=== PATIENT | male | born 1980 | race Two or more races ===

== ENCOUNTER 2024-03-14 14:34 | Inpatient (IN) | payer OTHER, SELFPAY ==
[~2024-03-14] VITALS: Ht 167.6 cm; Wt 69.7 kg
[2024-03-14 16:03] LABS: BASO % 0.4 % (0.0-1.0); EOS # 0.1 10^3/uL (0.0-0.5); EOS % 1.2 % (0.0-3.0); HEMATOCRIT 38.4 % (42.0-52.0); HEMOGLOBIN 12.8 g/dl (13.5-17.5); LYMPH # 1.7 10^3/uL (1.5-5.0); LYMPH % 25.3 % (24.0-44.0); MEAN CORPUSCULAR HGB CONC 33.3 g/dl (32.0-36.5); MONO # 0.5 10^3/uL (0.0-0.8); MONO % 7.3 % (2.0-8.0); NEUTROPHILS # 4.4 10^3/uL (1.5-8.5); NEUTROPHILS % 65.7 % (36.0-66.0); PLATELET COUNT, AUTOMATED 231 10^3/uL (150-450); RED BLOOD COUNT 4.74 10^6/uL (4.30-6.10); WHITE BLOOD COUNT 6.7 10^3/uL (4.0-10.0)
[2024-03-14 16:23] LABS: ERYTHROCYTE SEDIMENTATION RATE 43 mm/hr (0-15)
[2024-03-14 16:31] LABS: URIC ACID 3.7 MG/DL (3.7-9.2)
[2024-03-14] MEDS: HumuLIN R (REGULAR) INSULIN (NovoLIN R) **100U/ML** PER UNIT IV ONE (16:56)
[2024-03-14] MEDS: NS 1,000 ML IV ONE (16:56)
[2024-03-14 17:28] LABS: ACETONE/KETONE 0.18 MMOL/L (0.02-0.27)
[2024-03-14 17:57] LABS: HEMOGLOBIN A1c 13.2 % (4.0-6.0)
[2024-03-14 18:03] LABS: OSMOLALITY SERUM 310 MOSM/KG (275-295)
[2024-03-14 18:19] LABS: APPEARANCE, URINE CLEAR (CLEAR); BACTERIA, URINE AUTO NEGATIVE (NEGATIVE); BILIRUBIN, URINE AUTO NEGATIVE (NEGATIVE); BLOOD, URINE BLOOD NEGATIVE (NEGATIVE); COLOR, URINE STRAW (YELLOW); GLUCOSE, URINE (UA) AUTO 3+ mg/dL (NEGATIVE); KETONE, URINE AUTO TRACE mg/dL (NEGATIVE); LEUKOCYTE ESTERASE, URINE AUTO NEGATIVE (NEGATIVE); NITRITE, URINE AUTO NEGATIVE (NEGATIVE); PROTEIN, URINE AUTO NEGATIVE (NEGATIVE); RBC, URINE AUTO 0 /HPF (0-3); SQUAMOUS EPITHELIAL CELL UR AU 0 /HPF (0-6); UROBILINOGEN, URINE AUTO 0.2 mg/dL (0.0-2.0); WBC, URINE AUTO 0 /HPF (0-3)
[2024-03-14] MEDS ORDERED: AMPICILLIN SOD/SULBACTAM SOD 3 GM in DEXTROSE 5% (D5W) ADV/MINI-BAG 50 ML IV ONE (18:55)
[2024-03-14] MEDS: AMPICILLIN SOD/SULBACTAM SOD 3 GM in SODIUM CHLORIDE 0.9% 100ML ADD 100 ML IV ONE (19:29)
[2024-03-14] MEDS ORDERED: MOM 30ML SUSPENSION UDC PO PRN (20:40)
[2024-03-14] MEDS ORDERED: DEXTROSE 50% 50ML SYRINGE IV PRN (20:40)
[2024-03-14] MEDS ORDERED: GLUCAGON INJ 1MG VIAL SC PRN (20:40)
[2024-03-14] MEDS ORDERED: ACETAMINOPHEN 325 MG TAB PO PRN (20:40)
[2024-03-14] MEDS ORDERED: GLUCOSE 4 GM CHEW PO PRN (20:40)
[2024-03-14] MEDS ORDERED: HOME MED LIST COMPLETE! XX SCH (20:45)
[2024-03-14 21:21] LABS: ALBUMIN 3.6 G/DL (3.2-5.2); ALKALINE PHOSPHATASE 93 U/L (40-129); ALT/SGPT 15 U/L (7.0-40); AST/SGOT 9 U/L (<34); BILIRUBIN,TOTAL 0.8 MG/DL (0.3-1.2); BLOOD UREA NITROGEN 12 MG/DL (9-23); CALCIUM LEVEL 9.7 MG/DL (8.5-10.1); CARBON DIOXIDE LEVEL 35 MMOL/L (20-31); CHLORIDE LEVEL 97 MMOL/L (98-107); CREATININE FOR GFR 0.69 MG/DL (0.70-1.30); GLOMERULAR FILTRATION RATE > 60.0 (>60); GLUCOSE, FASTING 441 MG/DL (60-100); POTASSIUM SERUM 4.5 MMOL/L (3.5-5.1); SODIUM LEVEL 137 MMOL/L (136-145); TOTAL PROTEIN 7.7 G/DL (5.7-8.2)
[2024-03-14 21:37] LABS: VENOUS BASE EXCESS 2.6 (-2.0-2.0); VENOUS HCO3 29.6 MMOL/L (23.0-27.0); VENOUS O2 SATURATION 72.5 % (60.0-80.0); VENOUS PARTIAL PRESSURE CO2 56.6 mmHg (38.0-50.0); VENOUS PARTIAL PRESSURE O2 38.5 mmHg (30.0-50.0); VENOUS PH 7.337 UNITS (7.330-7.430); VENOUS STANDARD HCO3 26.3 MMOL/L; VENOUS TOTAL CO2 31.4 MMOL/L (24.0-28.0)
[2024-03-14 22:30] VITALS: BP 141/94; TEMP 97.9; O2SAT 99
[2024-03-14] MEDS: INSULIN LISPRO (NovoLOG) PER UNIT SC SCH (22:57)
[2024-03-15] MEDS: AMPICILLIN SOD/SULBACTAM SOD 3 GM in SODIUM CHLORIDE 0.9% 100ML ADD 100 ML IV SCH (01:29)
[2024-03-15 04:00] VITALS: BP 117/76; TEMP 97.9; O2SAT 96
[2024-03-15 06:22] LABS: HEMATOCRIT 35.9 % (42.0-52.0); HEMOGLOBIN 11.8 g/dl (13.5-17.5); MEAN CORPUSCULAR HEMOGLOBIN 26.8 pg (27.0-33.0); MEAN CORPUSCULAR HGB CONC 32.9 g/dl (32.0-36.5); MEAN CORPUSCULAR VOLUME 81.4 fl (80.0-96.0); PLATELET COUNT, AUTOMATED 211 10^3/uL (150-450); RED BLOOD COUNT 4.41 10^6/uL (4.30-6.10); WHITE BLOOD COUNT 5.1 10^3/uL (4.0-10.0)
[2024-03-15 06:47] LABS: BLOOD UREA NITROGEN 12 MG/DL (9-23); CALCIUM LEVEL 9.2 MG/DL (8.5-10.1); CARBON DIOXIDE LEVEL 33 MMOL/L (20-31); CHLORIDE LEVEL 101 MMOL/L (98-107); CREATININE FOR GFR 0.66 MG/DL (0.70-1.30); GLOMERULAR FILTRATION RATE > 60.0 (>60); GLUCOSE, FASTING 126 MG/DL (60-100); POTASSIUM SERUM 3.9 MMOL/L (3.5-5.1); SODIUM LEVEL 140 MMOL/L (136-145)
[2024-03-15] MEDS: ENOXAPARIN 40MG/0.4ML SYRINGE (J1650 PER 10MG) SC SCH (09:00)
[2024-03-15] MEDS: INSULIN LISPRO (NovoLOG) PER UNIT SC SCH (09:03)
[2024-03-15] MEDS ORDERED: MIDAZOLAM INJ 2MG/2ML VIAL As Ordered ONE (18:49)
[2024-03-15] MEDS ORDERED: fentaNYL 100 MCG/2 ML INJECTION As Ordered ONE (18:50)
[2024-03-15] MEDS ORDERED: propofoL 200 MG/20 ML VIAL As Ordered ONE (18:51)
[2024-03-15] MEDS ORDERED: ONDANSETRON 4MG 2ML VIAL As Ordered ONE (18:52)
[2024-03-15] MEDS: LIDOCAINE 2% MDV 20ML VIAL As Ordered ONE (18:57)
[2024-03-15] MEDS ORDERED: LIDOCAINE 2% 100MG/5ML SDV (FOR ANES.) As Ordered ONE (19:01)
[2024-03-15] MEDS: LIDOCAINE 1% MDV 20ML VIAL As Ordered ONE (19:08)
[2024-03-15] MEDS: UNASYN 3GM VIAL As Ordered ONE (19:20)
[2024-03-15] MEDS: GENTAMICIN SULF 80MG/2ML VIAL As Ordered ONE (19:45)
[2024-03-15] MEDS ORDERED: KETOROLAC 60MG 2ML VIAL As Ordered ONE (19:56)
[2024-03-15] MEDS ORDERED: ONDANSETRON 4MG 2ML VIAL IV PRN (20:10)
[2024-03-15] MEDS ORDERED: oxyCODONE 5MG TAB PO PRN (20:10)
[2024-03-15] MEDS ORDERED: HYDROMORPHONE HCL 0.5 MG/ 0.5 ML SYRINGE IV PRN (20:10)
[2024-03-15] MEDS ORDERED: fentaNYL 100 MCG/2 ML INJECTION IV PRN (20:10)
[2024-03-15 20:45] VITALS: BP 119/84; TEMP 97.5; O2SAT 98
[2024-03-15 21:16] VITALS: BP 120/85; TEMP 97.7; O2SAT 98
[2024-03-15 21:57] VITALS: BP 122/86; TEMP 97.7; O2SAT 99
[2024-03-15 23:04] VITALS: BP 120/84; TEMP 97.7; O2SAT 99
[2024-03-16] VITALS (8 sets, daily range): BP systolic 107–137; BP diastolic 66–90; TEMP 97.7–98.8; O2SAT 98–100
[2024-03-16 06:15] LABS: HEMATOCRIT 35.4 % (42.0-52.0); HEMOGLOBIN 11.7 g/dl (13.5-17.5); MEAN CORPUSCULAR HEMOGLOBIN 27.2 pg (27.0-33.0); MEAN CORPUSCULAR HGB CONC 33.1 g/dl (32.0-36.5); MEAN CORPUSCULAR VOLUME 82.3 fl (80.0-96.0); PLATELET COUNT, AUTOMATED 221 10^3/uL (150-450); WHITE BLOOD COUNT 4.5 10^3/uL (4.0-10.0)
[2024-03-16 06:39] LABS: BLOOD UREA NITROGEN 17 MG/DL (9-23); CALCIUM LEVEL 9.2 MG/DL (8.5-10.1); CARBON DIOXIDE LEVEL 34 MMOL/L (20-31); CHLORIDE LEVEL 99 MMOL/L (98-107); CREATININE FOR GFR 0.73 MG/DL (0.70-1.30); GLOMERULAR FILTRATION RATE > 60.0 (>60); GLUCOSE, FASTING 276 MG/DL (60-100); POTASSIUM SERUM 4.1 MMOL/L (3.5-5.1); SODIUM LEVEL 137 MMOL/L (136-145)
[2024-03-17 04:00] VITALS: BP 106/70; TEMP 98.1; O2SAT 98
[2024-03-17 04:45] LABS: HEMATOCRIT 35.7 % (42.0-52.0); HEMOGLOBIN 11.7 g/dl (13.5-17.5); MEAN CORPUSCULAR HEMOGLOBIN 26.9 pg (27.0-33.0); MEAN CORPUSCULAR HGB CONC 32.8 g/dl (32.0-36.5); MEAN CORPUSCULAR VOLUME 82.1 fl (80.0-96.0); PLATELET COUNT, AUTOMATED 249 10^3/uL (150-450); RED BLOOD COUNT 4.35 10^6/uL (4.30-6.10)
[2024-03-17 05:13] LABS: BLOOD UREA NITROGEN 15 MG/DL (9-23); CALCIUM LEVEL 9.4 MG/DL (8.5-10.1); CARBON DIOXIDE LEVEL 33 MMOL/L (20-31); CHLORIDE LEVEL 98 MMOL/L (98-107); CREATININE FOR GFR 0.68 MG/DL (0.70-1.30); GLOMERULAR FILTRATION RATE > 60.0 (>60); GLUCOSE, FASTING 322 MG/DL (60-100); POTASSIUM SERUM 4.8 MMOL/L (3.5-5.1); SODIUM LEVEL 135 MMOL/L (136-145)
[2024-03-17 08:00] VITALS: BP 97/66; TEMP 98.1; O2SAT 99
[2024-03-17] MEDS: LEVEMIR (INSULIN DETEMIR) 1 UNITS/0.01ML SC SCH (09:16)
[2024-03-17 12:00] VITALS: BP 117/82; TEMP 97.9; O2SAT 99
[2024-03-17] MEDS: SIMETHICONE 80MG CHEW TAB PO PRN (15:19)
[2024-03-17] MEDS: MIRALAX *UNIT DOSE* 17GM PACKET PO PRN (15:19)
[2024-03-17 16:00] VITALS: BP 124/85; TEMP 97.2; O2SAT 99
[2024-03-17 20:00] VITALS: BP 123/86; TEMP 97.9; O2SAT 95
[2024-03-18 01:43] LABS: C-PEPTIDE 0.14 ng/mL (0.80-3.85)
[2024-03-18 04:10] VITALS: BP 112/72; TEMP 97.7; O2SAT 99
[2024-03-18 05:09] LABS: HEMOGLOBIN 11.4 g/dl (13.5-17.5); MEAN CORPUSCULAR HGB CONC 32.6 g/dl (32.0-36.5); MEAN CORPUSCULAR VOLUME 82.9 fl (80.0-96.0); PLATELET COUNT, AUTOMATED 259 10^3/uL (150-450); RED BLOOD COUNT 4.22 10^6/uL (4.30-6.10); WHITE BLOOD COUNT 5.6 10^3/uL (4.0-10.0)
[2024-03-18 05:40] LABS: BLOOD UREA NITROGEN 19 MG/DL (9-23); CALCIUM LEVEL 9.1 MG/DL (8.5-10.1); CARBON DIOXIDE LEVEL 34 MMOL/L (20-31); CHLORIDE LEVEL 101 MMOL/L (98-107); CREATININE FOR GFR 0.71 MG/DL (0.70-1.30); GLOMERULAR FILTRATION RATE > 60.0 (>60); GLUCOSE, FASTING 285 MG/DL (60-100); POTASSIUM SERUM 4.4 MMOL/L (3.5-5.1); SODIUM LEVEL 137 MMOL/L (136-145)
[2024-03-18 12:00] VITALS: BP 108/72; TEMP 97.9; O2SAT 97
[2024-03-18 20:00] VITALS: BP 107/74; TEMP 97.7; O2SAT 99
[2024-03-19 04:00] VITALS: BP 108/70; TEMP 97; O2SAT 99
[2024-03-19 06:28] LABS: HEMATOCRIT 34.6 % (42.0-52.0); HEMOGLOBIN 11.3 g/dl (13.5-17.5); MEAN CORPUSCULAR HEMOGLOBIN 27.2 pg (27.0-33.0); MEAN CORPUSCULAR HGB CONC 32.7 g/dl (32.0-36.5); MEAN CORPUSCULAR VOLUME 83.4 fl (80.0-96.0); PLATELET COUNT, AUTOMATED 275 10^3/uL (150-450); RED BLOOD COUNT 4.15 10^6/uL (4.30-6.10); WHITE BLOOD COUNT 4.7 10^3/uL (4.0-10.0)
[2024-03-19 06:54] LABS: BLOOD UREA NITROGEN 18 MG/DL (9-23); CALCIUM LEVEL 9.6 MG/DL (8.5-10.1); CARBON DIOXIDE LEVEL 33 MMOL/L (20-31); CHLORIDE LEVEL 99 MMOL/L (98-107); CREATININE FOR GFR 0.71 MG/DL (0.70-1.30); GLOMERULAR FILTRATION RATE > 60.0 (>60); GLUCOSE, FASTING 272 MG/DL (60-100); POTASSIUM SERUM 4.7 MMOL/L (3.5-5.1); SODIUM LEVEL 138 MMOL/L (136-145)
[2024-03-19] MEDS: LEVEMIR (INSULIN DETEMIR) 1 UNITS/0.01ML SC SCH (08:56)
[2024-03-19 12:00] VITALS: BP 106/71; TEMP 97.5; O2SAT 99
[2024-03-19] MEDS: AUGMENTIN 875 MG TAB PO SCH (13:10)
[2024-03-19 20:26] VITALS: BP 126/85; TEMP 97.7; O2SAT 99
[2024-03-20 03:56] VITALS: BP 101/74; TEMP 97.7; O2SAT 99
[2024-03-20 06:33] LABS: HEMOGLOBIN 11.7 g/dl (13.5-17.5); MEAN CORPUSCULAR HEMOGLOBIN 27.1 pg (27.0-33.0); MEAN CORPUSCULAR HGB CONC 32.5 g/dl (32.0-36.5); MEAN CORPUSCULAR VOLUME 83.5 fl (80.0-96.0); PLATELET COUNT, AUTOMATED 298 10^3/uL (150-450); RED BLOOD COUNT 4.31 10^6/uL (4.30-6.10); WHITE BLOOD COUNT 4.9 10^3/uL (4.0-10.0)
[2024-03-20 06:47] LABS: BLOOD UREA NITROGEN 19 MG/DL (9-23); CALCIUM LEVEL 9.5 MG/DL (8.5-10.1); CARBON DIOXIDE LEVEL 34 MMOL/L (20-31); CHLORIDE LEVEL 99 MMOL/L (98-107); CREATININE FOR GFR 0.71 MG/DL (0.70-1.30); GLOMERULAR FILTRATION RATE > 60.0 (>60); GLUCOSE, FASTING 247 MG/DL (60-100); POTASSIUM SERUM 4.7 MMOL/L (3.5-5.1); SODIUM LEVEL 137 MMOL/L (136-145)
[2024-03-20] MEDS: LEVEMIR (INSULIN DETEMIR) 1 UNITS/0.01ML SC SCH (08:55)
[2024-03-20] MEDS ORDERED: ALCOPAD25 TOP (11:05)
[2024-03-20] MEDS ORDERED: LANTINJ4 SC ×2 (11:05→13:49)
[2024-03-20] MEDS ORDERED: PEN-308 SC (11:05)
[2024-03-20] MEDS ORDERED: LANC30MI XX (11:05)
[2024-03-20] MEDS ORDERED: METF-839 PO (11:05)
[2024-03-20] MEDS ORDERED: BLOOKIT21 XX (11:05)
[2024-03-20] MEDS ORDERED: GLUC1TES2 XX (11:05)
[2024-03-20] MEDS ORDERED: AMOX875T2 PO (11:05)
[2024-03-20 12:00] VITALS: BP 99/71; TEMP 97.7; O2SAT 99
[2024-03-20] MEDS ORDERED: PROBCAP14 PO (13:49)
[2024-03-20 23:53] LABS: ISLET CELL ANTIBODIES NEGATIVE (NEGATIVE)
[2024-03-21 22:42] LABS: GAD-65 AUTOANTIBODY < 5 IU/mL (<5)
== END 2024-03-20 18:45 | disposition home or self-care (01) | DRG 314 ==
LOC: M ED 14:34 → M ED INP 14:35 → M MSPAV 22:35 → OBSVTOIN 03-15 11:02
PROVIDERS: ADMIT Internal Medicine; ATTEND Internal Medicine Nephrology
PROC: 0Y6Q0Z3 Detachment at Left 1st Toe, Low, Open Approach (ICD-10-PCS; principal; 2024-03-15 18:00)
DX: E11.69 Type 2 diabetes mellitus with other specified complication (principal); M86.9 Osteomyelitis, unspecified; S91.112A Laceration without foreign body of left great toe without damage to nail, initial encounter; S92.512A Displaced fracture of proximal phalanx of left lesser toe(s), initial encounter for closed fracture; X58.XXXA Exposure to other specified factors, initial encounter; Y92.9 Unspecified place or not applicable; Y93.9 Activity, unspecified; Y99.9 Unspecified external cause status

== ENCOUNTER 2024-03-30 12:17 | Emergency (ER) | payer MEDICAID, OTHER ==
[~2024-03-30] VITALS: Ht 175.3 cm; Wt 69.7 kg
[~2024-03-30 12:17] MED LIST: ALCOPAD25 TOP; AMOX875T2 PO; BLOOKIT21 XX; GLUC1TES2 XX; LANC30MI XX; LANTINJ4 SC; METF-839 PO; PEN-308 SC; PROBCAP14 PO
[2024-03-30 14:45] VITALS: BP 116/78; TEMP 98.5; O2SAT 98
== END 2024-03-30 14:55 | disposition home or self-care (01) ==
LOC: M ED 12:17
DX: E11.9 Type 2 diabetes mellitus without complications (principal); Z79.2 Long term (current) use of antibiotics; Z79.4 Long term (current) use of insulin; Z79.84 Long term (current) use of oral hypoglycemic drugs

== ENCOUNTER 2024-08-20 10:14 | Emergency (ER) | payer OTHER ==
[~2024-08-20] VITALS: Ht 175.3 cm; Wt 68.8 kg
[2024-08-20 10:25] VITALS: TEMP 98
[2024-08-20 12:27] LABS: VENOUS BASE EXCESS 3.7 (-2.0-2.0); VENOUS HCO3 30.6 MMOL/L (23.0-27.0); VENOUS O2 SATURATION 56.1 % (60.0-80.0); VENOUS PARTIAL PRESSURE CO2 56.7 mmHg (38.0-50.0); VENOUS PARTIAL PRESSURE O2 30.9 mmHg (30.0-50.0); VENOUS STANDARD HCO3 26.9 MMOL/L; VENOUS TOTAL CO2 32.3 MMOL/L (24.0-28.0)
[2024-08-20] MEDS ORDERED: ISOVUE-370 76% 100ML VIAL As Ordered ONE (12:34)
[2024-08-20 12:44] LABS: BASO # 0.1 10^3/uL (0.0-0.2); BASO % 0.5 % (0.0-1.0); EOS % 0.3 % (0.0-3.0); HEMATOCRIT 34.3 % (42.0-52.0); HEMOGLOBIN 11.1 g/dl (13.5-17.5); LYMPH # 1.5 10^3/uL (1.5-5.0); MEAN CORPUSCULAR HEMOGLOBIN 27.1 pg (27.0-33.0); MEAN CORPUSCULAR HGB CONC 32.4 g/dl (32.0-36.5); MEAN CORPUSCULAR VOLUME 83.7 fl (80.0-96.0); MONO # 0.6 10^3/uL (0.0-0.8); MONO % 6.6 % (2.0-8.0); NEUTROPHILS # 7.1 10^3/uL (1.5-8.5); NEUTROPHILS % 76.4 % (36.0-66.0); PLATELET COUNT, AUTOMATED 426 10^3/uL (150-450); WHITE BLOOD COUNT 9.2 10^3/uL (4.0-10.0)
[2024-08-20 12:55] LABS: INR 1.01; PROTHROMBIN TIME 13.6 SECONDS (12.5-14.5)
[2024-08-20 12:59] LABS: KETONE, URINE AUTO RFX TRACE mg/dL (NEGATIVE); LEUKOCYTE ESTERASE UR AUTO RFX NEGATIVE (NEGATIVE); NITRITE, URINE AUTO RFX NEGATIVE (NEGATIVE); RBC, URINE AUTO RFX 0 /HPF (0-3); SQUAM EPITHELIAL CELL UR AURFX 0 /HPF (0-6); WBC, URINE AUTO RFX 0 /HPF (0-3)
[2024-08-20 13:00] LABS: LIPASE 18 U/L (12-53)
[2024-08-20 13:01] LABS: AMYLASE 55 U/L (30-118)
[2024-08-20 13:02] LABS: ALBUMIN 3.2 G/DL (3.2-5.2); ALKALINE PHOSPHATASE 108 U/L (40-129); ALT/SGPT 23 U/L (7.0-40); AST/SGOT 17 U/L (<34); BILIRUBIN,DIRECT 0.3 MG/DL (<0.4); BILIRUBIN,TOTAL 0.8 MG/DL (0.3-1.2); BLOOD UREA NITROGEN 11 MG/DL (9-23); CALCIUM LEVEL 9.1 MG/DL (8.5-10.1); CARBON DIOXIDE LEVEL 31 MMOL/L (20-31); CHLORIDE LEVEL 93 MMOL/L (98-107); GLOMERULAR FILTRATION RATE > 90.0 (>60); GLUCOSE, FASTING 387 MG/DL (60-100); POTASSIUM SERUM 4.5 MMOL/L (3.5-5.1); SODIUM LEVEL 132 MMOL/L (136-145); TOTAL PROTEIN 7.8 G/DL (5.7-8.2)
[2024-08-20] MEDS: NS (Normal Saline) 0.9% 1,000 ML IV ONE ×2 (13:11→16:13)
[2024-08-20] MEDS: PIPERACILLIN/TAZOBACTAM SOD 4.5 GM in DEXTROSE 5% (D5W) ADV/MINI-BAG 50 ML IV ONE ×2 (13:11→19:29)
[2024-08-20 13:14] LABS: PROCALCITONIN <0.04 ng/ml
[2024-08-20 13:49] LABS: C REACTIVE PROTEIN QUANTITATIV 12.98 MG/DL (<1.0)
[2024-08-20] MEDS: VANCOMYCIN HCL 1,250 MG, VIAL MATE ADAPTER 1 EACH in NS 250 ML IV ONE (14:06)
[2024-08-20] MEDS: HumuLIN R (REGULAR) INSULIN (NovoLIN R) **100U/ML** PER UNIT IV ONE (14:53)
[2024-08-20] MEDS: BOOSTRIX VACCINE (TETANUS/DIPHTH/ACEL. PERTUSSIS) 0.5ML SYR IM.IMMUN ONE (14:54)
[2024-08-20 19:15] VITALS: BP 133/83; O2SAT 99
== END 2024-08-20 19:37 | disposition short-term general hospital (02) ==
LOC: M ED 10:14
DX: E11.621 Type 2 diabetes mellitus with foot ulcer (principal); M86.171 Other acute osteomyelitis, right ankle and foot; L03.115 Cellulitis of right lower limb; F10.10 Alcohol abuse, uncomplicated; Z23 Encounter for immunization; Z79.2 Long term (current) use of antibiotics; Z79.4 Long term (current) use of insulin; Z79.84 Long term (current) use of oral hypoglycemic drugs
CPT/HCPCS: 71045; 73590; 73630; 73706; 74177; 80047; 80048; 80076; 81001; 82150; 82803; 83605; 83690; 84145; 85025; 85610; 85730; 86140; 86850; 86900; 86901; 87040; 87070; 87077; 87186; 90471; 90715; 93005; 93041; 93971; 94760; 96365; 96366; 96375; 99285; J1815; J2543; J3370; Q9967